=== PATIENT | female | born 1995 | race Caucasian/White ===

== ENCOUNTER 2016-05-21 13:12 | Emergency (ER) | payer OTHER | END 2016-05-21 14:48 | disposition left against medical advice (07) | LOC: UCCORT 13:12 | DX: Z53.21 Procedure and treatment not carried out due to patient leaving prior to being seen by health care provider (principal) ==

== ENCOUNTER 2016-05-23 17:40 | Emergency (ER) | payer OTHER ==
[2016-05-23 19:27] VITALS: BP 154/70
[2016-05-23] MEDS ORDERED: Amoxicillin/Clavulanate TAB* 875 MG PO ONE (19:37)
--- NOTE | 2016-05-23 19:44 | UC ---
Throat Pain/Nasal Gabriel HPI - HPI Summary HPI Summary: 3 week history of cough, with progressive sinus drainage and cough. Some ear pressure. No shortness of breath, no chest pain. - History of Current Complaint Chief Complaint: UCGeneralIllness Stated Complaint: SINUS/COUGH Time Seen by Provider: 05/23/16 19:28 Hx Obtained From: Patient Hx Last Menstrual Period: 05/06/16 Onset/Duration: Gradual Onset, Lasting Weeks - 3 Severity: Moderate Cough: Nonproductive Associated Signs & Symptoms: Positive: Dysphagia, Hoarseness, Sinus Discomfort - Epiglottits Risk Factors Epiglottis Risk Factors: Negative - Allergies/Home Medications Allergies/Adverse Reactions: Allergies Allergy/AdvReac Type Severity Reaction Status Date / Time No Known Allergies Allergy Verified 05/23/16 19:22 PMH/Surg Hx/FS Hx/Imm Hx Previously Healthy: Yes - Surgical History Surgical History: None - Family History Known Family History: Positive: Hypertension - Social History Occupation: Student Lives: With Family - with roommate Alcohol Use: Occasionally Substance Use Type: None Smoking Status (MU): Never Smoked Tobacco - Immunization History Most Recent Influenza Vaccination: Not the Season Review of Systems Constitutional: Fatigue Skin: Negative Eyes: Negative ENT: Sore Throat Respiratory: Cough Cardiovascular: Negative Gastrointestinal: Negative Genitourinary: Negative Motor: Negative Neurovascular: Negative Musculoskeletal: Negative Neurological: Headache - facial Psychological: Negative All Other Systems Reviewed And Are Negative: Yes Physical Exam Triage Information Reviewed: Yes Appearance: Ill-Appearing - congested and looks unwell Vital Signs: Initial Vital Signs Temp 98.9 F 05/23/16 19:23 Pulse 80 05/23/16 19:23 Resp 16 05/23/16 19:23 BP 154/70 05/23/16 19:23 Pulse Ox 99 05/23/16 19:23 Eyes: Positive: Conjunctiva Clear ENT: Positive: Pharyngeal erythema, TMs normal Dental Exam: Normal Neck: Positive: Supple, Nontender, No Lymphadenopathy Respiratory: Positive: Lungs clear, Normal breath sounds Cardiovascular: Positive: RRR, No Murmur Musculoskeletal Exam: Normal Neurological Exam: Normal Psychological Exam: Normal Skin Exam: Normal Throat Pain/Nasal Course/Dx - Course Course Of Treatment: augmentin for suspected sinusitis. - Differential Dx/Diagnosis Differential Diagnosis/HQI/PQRI: Influenza, Otitis Media, Pharyngitis, Sinusitis Provider Diagnoses: sinusitis Discharge - Discharge Plan Condition: Stable Disposition: HOME Prescriptions: Amoxicillin/Clavulanate TAB* [Augmentin TAB 875*] 875 mg PO BID #20 tab Benzonatate CAP* [Tessalon CAP*] 100 mg PO TID PRN #30 cap PRN Reason: Cough Additional Instructions: Take full course of augmentin. Begin use of flonase spray --this will help to decrease the drainage from the sinuses, and this will decrease the cough. You can also do nasal sinus rinses. I have sent in an oral cough suppressant which should help. There is a homeopathic cough medication called Zarbee's which can help with sleep and cough (try Deann's).
== END 2016-05-23 19:51 | disposition home or self-care (01) ==
LOC: UCCORT 17:40
DX: J32.9 Chronic sinusitis, unspecified (principal)
CPT/HCPCS: 99212; A9270-GY; G0463

== ENCOUNTER 2016-07-21 11:40 | Emergency (ER) | payer BC, OTHER ==
[2016-07-21 11:52] VITALS: BP 132/74
[2016-07-21] MEDS ORDERED: Ketorolac INJ* 30 MG/ML 1 ML VIAL IM ONE (12:21)
--- NOTE | 2016-07-21 12:27 | UC ---
Headache HPI - HPI Summary HPI Summary: Patient has had a frontal headache for the past 24 hours. No trauma, patient denies any ETOH or illicit drug use. headache intensity has remained the same. it is located in the front of the skull and between the eyes. states bothe eyes seem very blurry. visula acuity is equal bilaterally but imapired with glasses. - History Of Current Complaint Chief Complaint: UCGeneralIllness Stated Complaint: BLURRY VISION Time Seen by Provider: 07/21/16 12:16 Hx Obtained From: Patient Hx Last Menstrual Period: 07/18/16 ?: No Onset/Duration: Sudden Onset, Lasting Hours Onset Of Symptoms: Gradual Character: Sharp Location of Headache: Frontal Associated Signs And Symptoms: Positive: Visual Changes - Allergies/Home Medications Allergies/Adverse Reactions: Allergies Allergy/AdvReac Type Severity Reaction Status Date / Time No Known Allergies Allergy Verified 07/21/16 11:45 Home Medications: Home Medications Ibuprofen TAB* [Advil TAB*] 400 mg PO Q6H PRN 07/21/16 [History Confirmed ] PMH/Surg Hx/FS Hx/Imm Hx Previously Healthy: Yes - Surgical History Surgical History: None - Family History Known Family History: Positive: Hypertension - Social History Alcohol Use: Weekly Substance Use Type: None Smoking Status (MU): Never Smoked Tobacco - Immunization History Most Recent Influenza Vaccination: Not the Season Review of Systems Constitutional: Negative Skin: Negative Eyes: Blurred Vision ENT: Negative Respiratory: Negative Cardiovascular: Negative Gastrointestinal: Negative Genitourinary: Negative Motor: Negative Neurovascular: Negative Musculoskeletal: Negative Neurological: Headache Psychological: Negative All Other Systems Reviewed And Are Negative: Yes Physical Exam Triage Information Reviewed: Yes Appearance: Well-Appearing, Well-Nourished, Pain Distress Vital Signs: Initial Vital Signs Temp 98.2 F 07/21/16 11:47 Pulse 75 07/21/16 11:47 Resp 18 07/21/16 11:47 BP 132/74 07/21/16 11:47 Pulse Ox 100 07/21/16 11:47 Vital Signs Reviewed: Yes Eye Exam: Normal Eyes: Positive: Conjunctiva Clear, Other: - RAMON, EOMI, mild visual impairment bilaterally ENT: Positive: Hearing grossly normal, Pharyngeal erythema, TM bulging Dental Exam: Normal Neck exam: Normal Neck: Positive: Supple, Nontender, No Lymphadenopathy Respiratory Exam: Normal Respiratory: Positive: Chest non-tender, Lungs clear, Normal breath sounds Cardiovascular Exam: Normal Cardiovascular: Positive: RRR, No Murmur, Pulses Normal Abdominal Exam: Normal Abdomen Description: Positive: Nontender, No Organomegaly, Soft Bowel Sounds: Positive: Present Musculoskeletal Exam: Normal Musculoskeletal: Positive: Strength Intact, ROM Intact, No Edema Neurological Exam: Normal Neurological: Positive: Alert, Muscle Tone Normal Psychological Exam: Normal Skin Exam: Normal Headache Course/Dx - Course Course Of Treatment: Hx obtained, exam performed, medication reviewed, visual acuity checked, toradol given with mild relief, but still vision is affected, family hisotry of migrained, compazine given. recommend going home and resting. prescriptions given. - Differential Dx/Diagnosis Differential Diagnosis/HQI/PQRI: Subdural Hematoma, Meningitis, Migraine, Sinus Headache, Tension Headache, Viral Syndrome Provider Diagnoses: migraine. blurred vision Discharge - Discharge Plan Condition: Stable Disposition: HOME Patient Education Materials: Migraine Headache (ED) Additional Instructions: Migraine headaches Migraine headaches have been reported to worsen, improve, or not change in women taking an OC. If migraines occur during OC therapy, it is typically during the hormone-free interval. Use of extended cycle OC regimens or OCs with a shortened pill-free interval (four days) appear to result in fewer and less severe migraines when compared with standard OCs with a seven-day pill-free interval. Accumulating evidence supports an association between migraine, particularly migraine with aura, and ischemic stroke risk . However, the absolute increase in the risk of stroke is small. Although there are concerns that studies of stroke risk in women with migraine headaches have significant methodological limitations [1], the best evidence for an association comes from a meta- analysis of 11 case-control studies and three cohort studies . The pooled relative risk (RR) for ischemic stroke among women with any type of migraine was 2.16. In a pooled analysis of three of the studies, the RR among women with migraines who were also taking OCs was 8.72. Migraine with aura appears to be associated with a greater risk of stroke than migraine without aura . The WHO and ACOG conclude from the literature that women with a history of migraine headaches who take OCs are at increased risk for cerebral thromboembolism, and that the risks of OC use usually outweigh the benefits in women over age 35 years with migraines. In addition, they suggest that for women of any age with migraines associated with aura or focal symptoms, the risk of OC use is unacceptable. In women with migraines without aura, other modifiable risk factors for stroke such as smoking, hypertension, and dyslipidemia should be identified and treated before considering using an OC . Approximately 25 percent of women with migraine headaches have auras, which are usually visual. The International Headache Societys definition of aura is reviewed separately. In women with migraines with aura but no other risk factors, the frequency and severity of the aura is likely to be important. For example, a patient who experienced only one to two aura in the distant past may be a reasonable candidate for an OC, while a patient who experiences a prolonged aura with every migraine would not be . A consensus statement from headache and stroke experts suggests screening for and treatment of stroke risk factors in women with migraine. However, it does not state that low-dose OC use is contraindicated . Go home and get plenty of rest, You can start ibuprofen or aleve after 6 pm. Increase fluid intake I recommend that you follow up with your primary about other forms of contraception if migraines persist.
[2016-07-21] MEDS ORDERED: Prochlorperazine TAB* 5 MG PO ONE (12:51)
[2016-07-21] MEDS ORDERED: PROCHLORPERAZINE INJ 5 MG/ML 2 ML VIAL IV ONE (13:00)
== END 2016-07-21 13:46 | disposition home or self-care (01) ==
LOC: UCCORT 11:40
DX: G43.909 Migraine, unspecified, not intractable, without status migrainosus (principal); H53.8 Other visual disturbances
CPT/HCPCS: 96372; 99212; G0463; J0780; J1885

== ENCOUNTER 2017-01-16 12:25 | Emergency (ER) | payer BC, OTHER ==
[2017-01-16 13:33] VITALS: BP 132/78
--- NOTE | 2017-01-16 13:47 | UC ---
Throat Pain/Nasal Gabriel HPI - HPI Summary HPI Summary: ST, sores/ulcers in mouth, swollen tonsils, fever, aches, and malaise all starting yesterday. Also feels very tender lumps in the neck. Pt is a student living with other students. Has been taking ibuprofen with temporary fever relief. - History of Current Complaint Chief Complaint: UCRespiratory Stated Complaint: FEVER,SORE THROAT Time Seen by Provider: 01/16/17 13:27 Hx Obtained From: Patient Hx Last Menstrual Period: 12/29/16 ?: No Onset/Duration: Gradual Onset, Lasting Days Severity: Moderate Cough: None Associated Signs & Symptoms: Positive: Fever. Negative: Sinus Discomfort, Nasal Discharge - Allergies/Home Medications Allergies/Adverse Reactions: Allergies Allergy/AdvReac Type Severity Reaction Status Date / Time dust, pollen Allergy Hives Uncoded 01/16/17 13:33 Home Medications: Home Medications Ibuprofen TAB* [Advil TAB*] 400 mg PO SEE INSTRUCTIONS PRN 01/16/17 [History Confirmed 01/16/17] PMH/Surg Hx/FS Hx/Imm Hx Previously Healthy: Yes - Surgical History Surgical History: None - Family History Known Family History: Positive: Hypertension Negative: Cardiac Disease, Diabetes - Social History Occupation: Student Lives: Alone Alcohol Use: Occasionally Substance Use Type: None Smoking Status (MU): Never Smoked Tobacco - Immunization History Most Recent Influenza Vaccination: Not the Season Review of Systems Constitutional: Fever Skin: Negative Eyes: Negative ENT: Sore Throat Respiratory: Negative Cardiovascular: Negative Gastrointestinal: Negative Genitourinary: Negative Motor: Negative Neurovascular: Negative Musculoskeletal: Negative Neurological: Negative Psychological: Negative Is Patient Immunocompromised?: No All Other Systems Reviewed And Are Negative: Yes Physical Exam Triage Information Reviewed: Yes Appearance: Well-Appearing, Well-Nourished Vital Signs: Initial Vital Signs Temp 98 F 01/16/17 13:26 Pulse 109 01/16/17 13:26 Resp 18 01/16/17 13:26 BP 132/78 01/16/17 13:26 Pulse Ox 99 01/16/17 13:26 Vital Signs Reviewed: Yes Eye Exam: Normal Eyes: Positive: Conjunctiva Clear ENT: Positive: Hearing grossly normal, Pharyngeal erythema, TMs normal, Tonsillar swelling, Muffled/hoarse voice - muffled, Other: - small white ulcers on tonsils and soft palate, large shallow ulcer with [place] base on R upper lip mucosal surface. Negative: Nasal congestion, Nasal drainage Dental Exam: Normal Neck: Positive: Enlarged Nodes @ - marked enlargement of tonsillar nodes Respiratory Exam: Normal Respiratory: Positive: Chest non-tender, Lungs clear, Normal breath sounds, No respiratory distress, No accessory muscle use Cardiovascular: Positive: No Murmur, Tachycardia Musculoskeletal Exam: Normal Neurological Exam: Normal Neurological: Positive: Alert Psychological Exam: Normal Skin Exam: Normal Throat Pain/Nasal Course/Dx - Differential Dx/Diagnosis Provider Diagnoses: herpes stomatitis Discharge - Discharge Plan Condition: Stable Disposition: HOME Prescriptions: Magic Mouth Was-NILDA/MAAL/LIDO* 5 ml SWISH SWAL QID #200 ml ValACYclovir (*) [Valtrex 1 GM(*)] 1 gm PO BID #14 tab Patient Education Materials: Gingivostomatitis (ED) Additional Instructions: Call or come back if symptoms persist or worsen. It may take a full 1-2 weeks to get back to normal; fever can last up to 7 days.
== END 2017-01-16 14:00 | disposition home or self-care (01) ==
LOC: UCCORT 12:25
DX: B00.2 Herpesviral gingivostomatitis and pharyngotonsillitis (principal); J30.1 Allergic rhinitis due to pollen
CPT/HCPCS: 87651; 99212; G0463